=== PATIENT | male | born 1990 | race Caucasian/White ===

== ENCOUNTER 2017-04-17 20:02 | Emergency (ER) | payer OTHER ==
[2017-04-17 21:20] LABS: HEMOGLOBIN 14.8 gm/dl (14.0-17.5); RED BLOOD COUNT 4.68 M/UL (4.20-5.50); WHITE BLOOD COUNT 9.9 K/UL (4.5-11.0)
[2017-04-17 21:30] LABS: BUN/CREATININE RATIO 8 (0-10)
== END 2017-04-18 02:35 ==
LOC: ER1 20:02
PROVIDERS: Physician Assistant
DX: G89.18 Other acute postprocedural pain (principal); R10.31 Right lower quadrant pain; N13.30 Unspecified hydronephrosis; R31.9 Hematuria, unspecified; Z87.442 Personal history of urinary calculi; Z87.891 Personal history of nicotine dependence
CPT/HCPCS: 36415; 80053; 81001; 82150; 83605; 83690; 85025; 87086; 96374; 96375; 99285; J1885; J2270; J2405; J7050; Q9962